=== PATIENT | female | born 1960 | race Caucasian/White ===

== ENCOUNTER 2017-05-29 11:30 | Emergency (ER) | payer BC ==
[2017-05-29] MEDS ORDERED: Ondansetron 4 MG/2 ML SDV IVPUSH PRN (11:55)
[2017-05-29] MEDS ORDERED: Sodium Chloride 0.9% 500 ML IV ONE (11:55)
[2017-05-29] MEDS ORDERED: Sodium Chloride 0.9% 10 ML Syringe FLUSH PRN (11:55)
--- NOTE | 2017-05-29 12:28 | EDM.PDOC ---
ED HPI GENERAL MEDICAL PROBLEM - General Chief Complaint: Headache Stated Complaint: [facility] Time Seen by Provider: 05/29/17 11:52 Source of Information: Reports: Patient, RN Notes Reviewed - History of Present Illness INITIAL COMMENTS - FREE TEXT/NARRATIVE: 56 year old female presents by [facility] for [facility]., drowsiness and confussion. Due to her drowsiness and confusion history is quite vague. However she states to her knowledge the headache came on yesterday afternoon or evening somewhat slow and gradually. Her told her nurse that "she fell last evening. Not had a chance to visit with him yet so we'll need to get more information on that. Unfortunately it was her mother's this morning. When it was time to go to the she was confused, drowsy unable to walk in a normal way. Also complaining of the frontal and posterior headache. 4 ambulance was called and she was transported here without further incident. At this time she does complain of moderate headache. She states it is more intense frontal aspect of her head. She states she did have some nausea and vomiting last evening and again this morning. She denies any focal weakness or clumsiness that she is aware of. She is not aware of recent illness. No recent fever or chills. Other Treatments IMPROVEMENT INTERN: Advil PM 0000 and advil 400 mg at 0800 Frontal Headache Pain Score (Numeric/FACES): 8 - Related Data Allergies Allergy/AdvReac Type Severity Reaction Status Date / Time penicillin Allergy Swelling Verified 05/29/17 13:25 Home Meds: Home Meds ALPRAZolam [Xanax] 0.5 mg PO BEDTIME 05/11/15 [History] Past Medical History - Past Health History Medical/Surgical History: Denies Medical/Surgical History Other Gastrointestinal History: liver surgery Neurological History: Reports: Migraines Psychiatric History: Reports: Anxiety Hematologic History: Reports: None - Infectious Disease History Infectious Disease History: Reports: None - Past Surgical History Female Surgical History: Reports: Hysterectomy Social & Family History - Family History Family Medical History: Noncontributory - Tobacco Use Smoking Status *Q: Current Every Day Smoker Years of Tobacco use: 30 Packs/Tins Daily: 1 - Caffeine Use Caffeine Use: Reports: Coffee - Alcohol Use Days Per Week of Alcohol Use: 2 Number of Drinks Per Day: 2 Total Drinks Per Week: 4 Date of Last Drink: 05/28/17 - Recreational Drug Use Recreational Drug Use: No ED ROS GENERAL - Review of Systems Review Of Systems: See Below Constitutional: Reports: Diaphoresis (gone). Denies: Fever, Chills HEENT: Denies: Sinus Problem, Throat Pain, Vision Change Respiratory: Denies: Shortness of Breath, Pleuritic Chest Pain Cardiovascular: Denies: Chest Pain GI/Abdominal: Reports: Nausea, Vomiting (last evening and again this AM). Denies: Abdominal Pain Musculoskeletal: Reports: Back Pain. Denies: Shoulder Pain, Arm Pain - Physical Exam Exam: See Below General Appearance: Alert, Moderate Distress Eye Exam: Bilateral Eye: PERRL Throat/Mouth: Normal Inspection, Normal Oropharynx Head Exam: Other (No visible injury to the head or face). No: Facial Tenderness Neck: Supple, Other (Mild tenderness posterior base bilaterally, mild pain with side to side and frontal flexion) Respiratory/Chest: No Respiratory Distress, Lungs Clear, Normal Breath Sounds EKG INTERPRETATION EKG Date: 05/29/17 Rhythm: NSR Morse: Normal P-Wave: Present QRS: Other (Q waves present anterior leads) Course - Vital Signs Last Recorded V/S: Last Vital Signs Temp 96.8 F 05/29/17 11:37 Pulse 58 L 05/29/17 11:37 Resp BP 153/76 H 05/29/17 11:37 Pulse Ox 100 05/29/17 11:37 - Orders/Labs/Meds Orders: Active Orders 24 hr Category Date Time Status EKG 12 Lead [EKG Documentation Completion] [RC] STAT Care 05/29/17 11:54 Active Peripheral IV Care [RC] . DIRECTED Care 05/29/17 11:55 Active DRUG SCREEN, URINE [URCHEM] Stat Lab 05/29/17 11:54 Uncollected Ondansetron [Zofran] Med 05/29/17 11:55 Active 4 mg IVPUSH Q8H PRN Sodium Chloride 0.9% [Saline Flush] Med 05/29/17 11:55 Active 10 ml FLUSH ASDIRECTED PRN Peripheral IV Insertion Adult [OM.PC] Stat Oth 05/29/17 11:55 Ordered Medication Orders Ondansetron HCl (Zofran) 4 mg IVPUSH Q8H PRN PRN Reason: Nausea Last Admin: 05/29/17 12:07 Dose: 4 mg Sodium Chloride (Saline Flush) 10 ml FLUSH ASDIRECTED PRN PRN Reason: Keep Vein Open Last Admin: 05/29/17 12:16 Dose: 10 ml Labs: Laboratory Tests 05/29/17 05/29/17 05/29/17 Range/Units 12:25 12:25 12:25 WBC 12.46 H (3.98-10.04) K/mm3 RBC 4.56 (3.98-5.22) M/mm3 Hgb 14.6 (11.2-15.7) gm/L Hct 41.7 (34.1-44.9) % MCV 91.4 (79.4-94.8) fl MCH 32.0 (25.6-32.2) pg MCHC 35.0 (32.2-35.5) g/dl RDW Std Deviation 44.1 (36.4-46.3) fL Plt Count 148 L (182-369) K/mm3 MPV 10.6 (9.4-12.3) fl Neut % (Auto) 86.2 H (34.0-71.1) % Lymph % (Auto) 8.1 L (19.3-51.7) % Emmet % (Auto) 5.5 (4.7-12.5) % Eos % (Auto) 0 L (0.7-5.8) Baso % (Auto) 0.0 L (0.1-1.2) % Neut # (Auto) 10.74 H (1.56-6.13) K/mm3 Lymph # (Auto) 1.01 L (1.18-3.74) K/mm3 Emmet # (Auto) 0.69 H (0.24-0.36) K/mm3 Eos # (Auto) 0.00 L (0.04-0.36) K/mm3 Baso # (Auto) 0.00 L (0.01-0.08) K/mm3 Manual Slide Review Abnormal smear Sodium 130 L (136-145) mEq/L Potassium 3.8 (3.5-5.1) mEq/L Chloride 95 L (98-107) mEq/L Carbon Dioxide 27 (21-32) mEq/L Anion Gap 11.8 (5-15) BUN 5 L (7-18) mg/dL Creatinine 0.7 (0.55-1.02) mg/dL Est Cr Clr Drug Dosing 72.66 mL/min Estimated GFR (MDRD) > 60 (>60) mL/min BUN/Creatinine Ratio 7.1 L (14-18) Glucose 102 (74-106) mg/dL Calcium 8.9 (8.5-10.1) mg/dL Total Bilirubin 0.5 (0.2-1.0) mg/dL AST 19 (15-37) U/L ALT 27 (14-59) U/L Alkaline Phosphatase 126 H (46-116) U/L C-Reactive Protein 1.2 H* (<1.0) mg/dL Total Protein 6.9 (6.4-8.2) g/dl Albumin 3.8 (3.4-5.0) g/dl Globulin 3.1 gm/dL Albumin/Globulin Ratio 1.2 (1-2) Ethyl Alcohol 0.00 (0.00) gm% Meds: Medications Generic Name Dose Route Start Last Admin Trade Name Freq PRN Reason Stop Dose Admin Ondansetron HCl 4 mg 05/29/17 11:55 05/29/17 12:07 Zofran IVPUSH 4 mg Q8H PRN Administration Nausea Sodium Chloride 10 ml 05/29/17 11:55 05/29/17 12:16 Saline Flush FLUSH 10 ml ASDIRECTED PRN Administration Keep Vein Open Discontinued Medications Generic Name Dose Route Start Last Admin Trade Name Freq PRN Reason Stop Dose Admin Sodium Chloride 500 mls @ 999 mls/hr 05/29/17 11:55 05/29/17 12:14 Normal Saline IV 05/29/17 12:25 999 mls/hr .BOLUS ONE Administration - Re-Assessments/Exams Free Text/Narrative Re-Assessment/Exam: 05/29/17 13:30. Her arrived about a half hour after patient arrival, CT head had been obtained by this time revealing drinkable and subarachnoid hemorrhage on the left, see radiology report for details. no has been able to give us further information stating that family did find her on the garage floor about 10:30 last evening. They did not think she had hit her head hard. They thought that she had "just passed out". It sounds like she may have had one or 2 beers last evening and also some Xanax which she does take somewhat regularly to help her sleep. Her states "she just wanted to go to bed" so that is what they helped her do. On awakening this morning she was nauseated, there reportedly was some vomiting last evening and again this morning. However she felt well enough to get dressed for her mother's , showered on her own without major difficulty. Then when it was time to go to the she had difficulty standing and walking. She seemed more drowsy with some mild confusion. At that point ambulance was called resulting in her being brought here to our ED. With concern that there is a ruptured aneurysm responsible for noted hemorrhage and that she may have had a sentinel event last evening and then further hemorrhage this morning we are transferring her to [facility], the only facility [facility] capable of providing definitive treatment for cerebral aneurysm. I have discussed this with Dr. Carr, Neurosurgeon operations research scientist for [facility] who does accept patient in transfer. We are sending her [facility] fixed wing. They left just a few minutes ago. They will give labetalol prn to keep BP below 140 systolic. Her initial BP's here were in the 150's, her last BP 136 systolic. Neuro status about the same as arrival. Her husbland and family are aware seriousness of her condition and agree with flight transfer to [place]. Departure - Departure Time of Disposition: 13:00 Disposition: DC/Tfer to [facility] 02 Clinical Impression: Subarachnoid hemorrhage - Discharge Information Referrals: Meagan Garcia NP [Primary Care Provider] - Forms: ED Department Discharge - My Orders Last 24 Hours: My Active Orders 05/29/17 11:54 EKG 12 Lead [EKG Documentation Completion] [RC] STAT DRUG SCREEN, URINE [URCHEM] Stat 05/29/17 11:55 Peripheral IV Care [RC] . DIRECTED Ondansetron [Zofran] 4 mg IVPUSH Q8H PRN Sodium Chloride 0.9% [Saline Flush] 10 ml FLUSH ASDIRECTED PRN Peripheral IV Insertion Adult [OM.PC] Stat - Assessment/Plan Last 24 Hours: My Active Orders 05/29/17 11:54 EKG 12 Lead [EKG Documentation Completion] [RC] STAT DRUG SCREEN, URINE [URCHEM] Stat 05/29/17 11:55 Peripheral IV Care [RC] . DIRECTED Ondansetron [Zofran] 4 mg IVPUSH Q8H PRN Sodium Chloride 0.9% [Saline Flush] 10 ml FLUSH ASDIRECTED PRN Peripheral IV Insertion Adult [OM.PC] Stat
--- NOTE | 2017-05-29 12:37 | CT ---
Head CT Technique: Multiple axial sections through the brain were obtained. Intravenous contrast was not utilized. Findings: Parenchymal hemorrhage is identified within the posterior left frontal region. This parenchymal hemorrhage measures approximately 4.4 cm x 2.4 cm. There is blood being seen with in a subarachnoid location within the posterior left frontal, temporal region as well as blood extending into the left parietal region. There is blood that ruptures into the lateral ventricle with blood being seen within both lateral ventricles as well as blood within the third ventricle. Blood also noted within the fourth ventricle. Mild effacement of the lateral ventricle is seen secondary to the parenchymal hemorrhage. Minimal midline shift is also seen. Impression: 1. Large parenchymal hemorrhage within the posterior left frontal region. Hemorrhage ruptures into the lateral ventricles with blood being seen within both lateral ventricles, third ventricle and fourth ventricle. 2. Fairly extensive subarachnoid hemorrhage also seen on the left side involving the posterior left frontal, temporal and parietal regions. 3. Mild mass effect upon the left lateral ventricle as well as mild midline shift by approximately 1.5 mm. Diagnostic code #5
[2017-05-29 14:45] VITALS: BP 136/71
== END 2017-05-29 13:20 ==
LOC: SUPCPDRO 11:30 → JD.ED 11:30
DX: S06.6X9A Traumatic subarachnoid hemorrhage with loss of consciousness of unspecified duration, initial encounter (principal); F17.210 Nicotine dependence, cigarettes, uncomplicated; Z88.0 Allergy status to penicillin; Z90.710 Acquired absence of both cervix and uterus; W19.XXXA Unspecified fall, initial encounter
CPT/HCPCS: 36415; 70450; 80053; 85025; 86140; 93005; 96374; 99285; G0480; J2405; J7040; J7050; 99284